=== PATIENT | male | born 1940 | race Caucasian/White ===

== ENCOUNTER 2024-11-13 23:46 | Observation (INO) | payer OTHER, SELFPAY ==
[2024-11-13] VITALS (8 sets, daily range): BP systolic 138–191; BP diastolic 88–122; BMI 27.4
[2024-11-13 20:19] LABS: % Basophils 0.5 % (0-2); % Eosinophils 2.3 % (0-6); % Immature Granulocytes 0.3 % (0-0.5); % Monocytes 5.4 % (1.7-9.3); % Neutrophils 77.5 % (42.2-75.2); Absolute Basophils 0.1 10^3/uL (0-0.2); Absolute Eosinophils 0.2 10^3/uL (0-0.7); Absolute Lymphocytes 1.5 10^3/uL (1.2-3.4); Absolute Monocytes 0.6 10^3/uL (0.1-0.6); Hematocrit 46.1 % (39.0-52.0); Mean Corp Hgb Conc. 34.7 g/dL (33.0-37.0); Mean Corpuscular Hgb 32.1 pg (27.0-31.0); Mean Corpuscular Volume 92.4 fL (80.0-94.0); Nucleated Red Blood Cells % 0 % (-); Platelet Count 133 10^3/uL (130-400); Red Blood Cell Count 4.99 10^6/uL (4.70-6.10); Red Cell Dist. Width 12.2 % (11.5-14.5); White Blood Cell Count 10.3 10^3/uL (4.8-10.8)
[2024-11-13] MEDS: VALIUM INJECTION 2 MG IV (20:25)
[2024-11-13 20:46] LABS: Blood Urea Nitrogen 20 mg/dl (9-20); Calcium 8.7 mg/dl (8.4-10.2); Carbon Dioxide 27 mmol/L (22-30); Chloride 103 mmol/L (98-107); Estimated Creatinine Clearance 68 ml/min; Glucose 126 mg/dl (70-99); Sodium 137 mmol/L (135-145); eGFR > 60.00
--- NOTE | 2024-11-13 22:42 | ED.GENMED ---
History of Present Illness
General
Chief Complaint: Dizziness
Time Seen by Provider: 11/13/24 19:53
History of Present Illness
History of Present Illness:
84-year-old male presents to the emergency department for evaluation of abrupt onset of dizziness with difficulty ambulating beginning at approximately 5 PM after waking up from a nap. [place] well throughout the day. Denies specific sense of room
spinning but feels very unsteady when upright feels though he may fall. No headaches, vision changes, chest pain, or shortness of breath. No recent viral URIs
Review of Systems
Review of Systems
Allergies reviewed?: Yes
All Other Systems: ROS reviewed and negative except as documented in HPI and ROS
Phy Exam
Physical Exam
Physical Exam:
GEN: Well appearing, NAD, WDWN
HEENT: Oral mucosa moist, no scleral icterus, no nasal congestion
Cardiac: Regular rate
Lung: No respiratory distress, no tachypnea
MSK: No gross deformity or injuries
Skin: Good color, no pallor or jaundice, no rashes
Neuro: AO x3; CN II-XII grossly intact. BUE strength 5/5 in all scruggs, sensation intact and symmetric. BLE strength 5/5 in all scruggs, sensation intact and symmetric. Right beating horizontal nystagmus at rest, worsens when upright, negative test
of skew
Psych: Calm, cooperative
Course
Orders/Labs/Results
Orders:
Orders
11/13/24 19:52
EKG [Electrocardiogram (*1)] Urgent
Reason for Study: Vertigo / Dizzy
11/13/24 19:53
EKG- Treatment ONCE
11/13/24 20:04
Basic Metabolic Panel Urgent
Complete Blood Count/With Diff Urgent
11/13/24 20:07
CT Head W/o Iv Contrast Urgent
Comment:
Reason For Exam: vertigo
diazePAM [Valium Injection] 2 mg IV NOW STA
11/13/24 23:20
Admit/Transfer Patient As Directed
Co-Sign Provider:
Level of Care: Observation services
Assign to:: Telemetry
Physician / Group: joe
Diagnosis: vrtigo
Reason for Telemetry: Other
Other Reason for Telemetry: vertigo, arrhythmia
Date to Stop Telemetry: 11/15/24
Time to Stop Telemetry: 11:00
PRN Pain Medication Management As Directed
May give lesser potent ordered pain med per pt: Yes
preference::
Protocol:: Medication orders for pain may be administered in a
manner that supports deferring to patient preference
when the pt is:
- Requesting an ordered lesser potent pain medication.
Least to most potent pain medications are defined
as: acetaminophen < NSAID < tramadol < opioids
(morphine, oxycodone, hydromorphone).
- Requesting a lesser dose of the same medication IF
ORDERED.
- Requesting a less intrusive route of administration
if both routes are prescribed by the provider (PO <
IV).
11/13/24 23:21
Code Status As Directed
Resuscitation Status: Full Code
11/13/24 23:29
Lisinopril [Zestril] 10 mg PO NOW STA
Metoprolol Xl [Toprol Xl] 12.5 mg PO NOW STA
11/15/24 11:00
DC Protocol for Telemetry ONCE
Abnormal Lab Results
11/13/24
20:04
MCH 32.1 H pg
(27.0-31.0)
MPV 11.0 H fL
(7.4-10.4)
Absolute Neuts (auto) 8.0 H 10^3/uL
(1.4-6.5)
Neutrophils % 77.5 H %
(42.2-75.2)
Lymphocytes % 14.0 L %
(20.5-51.1)
Glucose 126 H mg/dl
(70-99)
11/13/24 20:04
11/13/24 20:04
Vital Signs
Initial and Last Documented VS:
Initial Vital Signs
Temp Pulse Resp BP Pulse Ox
98.9 F 83 17 191/106 98
11/13/24 19:54 11/13/24 19:54 11/13/24 19:54 11/13/24 19:54 11/13/24 19:54
Last Documented Vital Signs
Temp Pulse Resp BP Pulse Ox
98.5 F 82 22 182/103 97
11/13/24 20:00 11/13/24 23:00 11/13/24 23:00 11/13/24 23:00 11/13/24 22:45
MDM/Problems Addressed
MDM/Problems Addressed:
Patient has persistent symptoms despite IV diazepam. Given his advanced age he has a significant fall risk and as such we will admit for further evaluation and management. Do not suspect central etiology given the horizontal nystagmus and
improvement with IV diazepam. He has no other neurologic deficits including no visual changes and no limb ataxia. Given episode of vertigo in the absence of any other neurologic deficits there is no indication for thrombolytics at this time
*Critical Care Note
Total Time (30-74mins, 75-104mins- exclusive of procedures): Not Applicable
ED Attending Note
-
Portions of this chart may have been created with voice recognition software.� Occasional wrong word or��sound alike� substitutions may have occurred due to the inherent limitations of voice recognition software.
Discharge Plan
Departure
Patient Disposition: Admit
Date of Disposition: 11/13/24
Time of Disposition: 22:49
Admit to: Med/Surg
Presentation/result/management discussed w/ accepting MD/DO: Hospitalist
Discharge Problem:
Vertigo
Interventions
Interventions:
*Risk Screen - Suicide Last Done: 11/13/24 19:54
*General Assessment Last Done: 11/13/24 19:54
*Neglect/Abuse Screening Last Done: 11/13/24 19:54
ED- Fall Risk Assessment Last Done: 11/13/24 19:54
*ED COVID-19 Vaccine History Last Done: 11/13/24 19:54
ED- Neurological Assessment Last Done: 11/13/24 19:54
ED Swallowing Screen Last Done: 11/13/24 19:54
--- NOTE | 2024-11-13 22:56 | HPS.HSE ---
Addendum entered and electronically signed by Yamil Leo DO 11/13/24 23:47:
Patient seen and examined independently. Agree with findings and plan as set forth by ROGER Dawson.
Patient is an 84y M with PMH significant for A-Fib, HTN and ASCVD who presents to ED complaining of dizziness / unsteady gait. Patient states that he felt well until he woke from a nap this evening around 5 PM. he woke with symptoms of
dizziness and ataxia. He was en route to the ED and had a single episode of emesis in the car. Patient reports episode of unsteady gait and subsequent fall (no injury) about 2 weeks ago while walking his dog. No other baseline ambulatory issues /
balance issues / etc.
His BP was significantly elevated on arrival here in the ED. It briefly improved after Valium but is again elevated.
Patient states that he does not feel dizzy at this time.
Ass:
Dizziness
ASCVD
Benign Hypertension
Permanent Atrial Fibrillation
Hemochromatosis
Plan:
Observe overnight for further evaluation and treatment.
Monitor for any new / recurrent symptoms.
Resume usual BP medication (has not had evening meds yet) and adjust as needed.
IV hydralazine for very high BP.
PT / OT evaluations in the AM.
MRI in the AM given multiple risk factors for stroke.
Original Note:
Family Physician
-
Family Physician: Deepika Bee MD
Chief Complaint
-
dizzy
unstready
History of Present Illness
84-year-old male with PMH for CAD s/p cardiac stents, permanent atrial fib, HTN, HLD presents to the emergency department for evaluation of abrupt onset of dizziness with difficulty ambulating beginning at approximately 5 PM after waking up from a
nap. he felt very unsteady on his feet. he vomited once in the car. denied abdominal pain or diarrhea. denied fever, chills, congestion, cough. denied CLEMONS. denied dysuria or hematuria. patient had a fall two week while he was walking his dog. he was
not able to control his balance that and he fell on his left side to the grass. Denies specific sense of room spinning.
admitting for further management. patient received diazepam in ER, feels much better since then.
Medical History
Past Medical History
Past Medical History: Reports Other
Additional Past Medical History:
vitamin D deficiency
CAD
HTN
GERD
Past Surgical History: Reports Other
Additional Past Surgical History:
cardiac stent
Social History
Tobacco: Former Smoker
Alcohol: Occasional
Drug: None
Personal:
Living: With Family
Family History
Family History: Not pertinent
Allergies / Home Medications
Allergies reflects when Allergies were last updated in [email or web address].
Home Medications with original date entered in [email or web address]
Allergy/Medication List:
Allergies
Allergy/AdvReac Type Severity Reaction Status Date / Time
No Known Allergies Allergy Unverified 11/13/24 19:53
Home Medications
apixaban 5 mg tablet (Eliquis) 5 mg PO BID 11/13/24
calcium carbonate (Tums) 100 mg PO DAILYPRN PRN heartburn 11/13/24
cholecalciferol (vitamin D3) 25 mcg (1,000 unit) tablet (Vitamin D3) 25 mcg PO HS 11/13/24
lisinopril 10 mg tablet 10 mg PO HS 11/13/24
metoprolol tartrate 25 mg tablet 12.5 mg PO BID 11/13/24
simvastatin 10 mg tablet 10 mg PO HS 11/13/24
Review of Systems
-
Constitutional: Reports No Symptoms
EENT: Reports No Symptoms
Respiratory: Reports No Symptoms
Cardiac: Reports No Symptoms
Abdomen/GI: Reports No Symptoms
: Reports No Symptoms
Musculoskeletal: Reports No Symptoms
Skin: Reports No Symptoms
Neurological: Reports Dizzy and Other (off balance)
Endocrine: Reports No Symptoms
Hematologic/Lymphatic: Reports No Symptoms
Psych: Reports No Symptoms
Physical Exam
Vital Signs
Vital Signs
Temp Pulse Resp BP Pulse Ox
98.5 F 85 14 170/88 94
11/13/24 20:00 11/13/24 21:56 11/13/24 21:56 11/13/24 21:55 11/13/24 21:56
Physical Exam
General: Well Developed, Well Nourished and No Apparent Distress
HEENT: NormoCephalic, Moist mucous membranes and Atraumatic
Respiratory: Clear
Cardiac: S1/S2 and Regular Rhythm; No Murmur or Rub
GI: Soft, Non Tender, Non Distended and Normal Bowel Sounds; No Organomegaly
Rectal: Deferred by Provider
Musculoskeletal: No Clubbing, No Cyanosis and No Edema
Skin: No Rash
Neuro: AO x 3 and Nonfocal/grossly intact
Psych: Calm
Laboratory Results
-
11/13/24 20:04
11/13/24 20:04
Laboratory Results
Total Bilirubin Cancelled 11/13/24 20:04
AST Cancelled 11/13/24 20:04
ALT Cancelled 11/13/24 20:04
Alkaline Phosphatase Cancelled 11/13/24 20:04
Data Reviewed
-
CT Scan: Report Reviewed by me
Lab Data: Labs Reviewed by me
Impression/Plan
-
#acute vertigo
-improved with iv Valium
-head CT with There are no acute intracranial abnormalities.There is moderate diffuse cortical atrophy with moderate nonspecific white matter changes as described above.
-obtain MRI of head
-obtain orthostatics
-ctm
#hxt of CAD
#hxt of cardiac stents
#hxt of permanent atrial fib
-eliquis and metoprolol continued
#essential htn
-patient hypertensive in ER
-continue lisinopril with hold parameter
-gave a dose of metoprolol and lisinopril in ER.
#hxt of hemochromatosis
-gets phlebotomy twice a year
-follow Dr. Weston as outpatient.
#HLD
-statin continued
#DVT prophylaxis
-eliquis
#CODE status
-full code
[2024-11-14] VITALS (21 sets, daily range): BP systolic 137–200; BP diastolic 76–144; PULSE 59–73; O2SAT 97; BMI 25.5
[2024-11-14] MEDS: TOPROL XL 12.5 MG PO (01:41)
[2024-11-14] MEDS: ZESTRIL 10 MG PO ×2 (01:41→17:53)
--- NOTE | 2024-11-14 04:49 | EDRN ---
Ativan 0.5mg IV and NSS 0.25ml IV that is ordered is currently being held, as it is meant to be given 'promotions representative to MRI' and pt. will not be getting said MRI until later this morning. Pt. is aware medication to be given prior to MRI, pt. agreeable
with this plan.
[2024-11-14] MEDS: ELIQUIS 5 MG PO ×2 (08:40→23:08)
[2024-11-14] MEDS: LOPRESSOR 12.5 MG PO ×2 (08:40→23:08)
[2024-11-14] MEDS: APRESOLINE 10 MG IV (10:51)
--- NOTE | 2024-11-14 12:00 | PTCARENOTE ---
Assumed care of patient [id number].
Patient awaiting MRI after complaint of dizziness/unsteady gait. Patient is pleasant, cooperative and AAOX4. No Neuro Deficits at this time, NIH 0. A-Fib on Monitor with PVC's. Hypertensive to SBP > 200 after working with PT, administered IV
Hydralazine with great effect (BP 137/76).
--- NOTE | 2024-11-14 13:35 | W.PN.HOSP.TC ---
Today's Communication/Plan
-
PT/OT
Increase lisinopril
brain MRI
Assessment / Plan
Assessment / Plan
Gen-AAOx3, NAD
HEENT-NC, AT, anicteric, clear oral mm
Neck-supple
CV-reg, no M, +S1/S2
Lungs-clear B/L
Abd-soft, NT, ND
Ext-no edema
Musculoskeletal-no cyanosis, clubbing
Skin-warm and dry
Neuro-grossly non-focal
Psych-calm, cooperative
Gait ataxia -patient denies dizziness, lightheadedness, vertigo. Brain MRI pending, rule out stroke. Left lateral gaze horizontal nystagmus noted on exam. Questionable positive left Babinski on exam.
PT/OT.
CAD -stable.
Essential hypertension with hypertensive urgency -lisinopril and metoprolol resumed, will increase lisinopril dose to 20 mg daily.
Permanent atrial fibrillation -Eliquis.
Hyperlipidemia -simvastatin.
Hemochromatosis
GERD
Full code
Anticipated Discharge: Within 24 hours
Subjective/Interval History
-
Date of Service: November 14, 2024
Patient seen and examined. Still with ataxia. Denies vertigo.
Objective Data
-
Vital Signs:
Vital Signs
Temp Pulse Resp BP Pulse Ox
97.4 F 69 19 162/144 93
11/14/24 08:44 11/14/24 13:15 11/14/24 13:15 11/14/24 13:00 11/14/24 13:15
Review of Systems
-
History Source: Patient
All other systems: Reviewed and negative
[2024-11-14] MEDS: NSS (PRESERVATIVE FREE) 0.25 ML IV (15:28)
[2024-11-14] MEDS: ATIVAN 0.5 MG IV (15:28)
--- NOTE | 2024-11-14 17:40 | PTCARENOTE ---
pt presents from ED via stretcher. pt is AAO*3, room air. denies any pain or dizziness. Family at the bedside updated by Dr. Vivas. pt is oriented to the room. call parish within the reach. plan of care ongoing.
[2024-11-14] MEDS: ELIQUIS PO (21:21)
[2024-11-14] MEDS: LIPITOR PO (21:21)
[2024-11-14] MEDS: LOPRESSOR PO (21:21)
--- NOTE | 2024-11-14 21:24 | PTCARENOTE ---
Patient AAO x1 only to self. Patient refusing nightime medications. 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 Will continue to monitor.
[2024-11-14] MEDS: LIPITOR 10 MG PO (23:08)
--- NOTE | 2024-11-14 23:20 | PTCARENOTE ---
Update: patient more calm and cooperative. Given all nighttime medications. POLYSOMNOGRAPHY TECH updated.
[2024-11-15 00:48] VITALS: BP 180/92
[2024-11-15] MEDS: APRESOLINE 5 MG IV (00:58)
[2024-11-15 03:53] VITALS: BP 160/88
--- NOTE | 2024-11-15 08:24 | CON.NEURO ---
Consultation
Order
Date of Consultation: 11/15/24
Requesting Provider: Maurice Vivas DO
Reason for Consult: Ataxia, encephalopathy
Neurology Consultation Note.
HPI: This is an 84-year-old man who presented to [facility] on 11/13/2024 with imbalance. Neurology consult was requested for an evaluation and management of ambulatory dysfunction and encephalopathy.
Based on EMR Mr. Villatoro developed an acute imbalance, dizziness with associated emesis prompting the ER visit.
According to patient's daughter Mr. Villatoro has had progressive cognitive decline over the last year. She developed fluctuating confusion and agitation on 11/13 evening.
At baseline the patient ambulates with no assistive device does have intermittent shuffling gait takes his medications independently and drives.
Based on EMR patient was diagnosed with cognitive impairment based on MoCA score of 20/30 in September 2024.
ER VS: 191/106, 83, afebrile
EKG:A Fib, QTc Int : 510 ms
PDMP:none
Labs(11/13/2024) normal WBCs, sodium, calcium, glucose�126,
CT head wo contrast
Brain MRI 3 small chronic ischemic infarcts in the left cerebellar hemisphere, moderate diffuse cerebral and cerebellar volume loss and leukoaraiosis
MAR: Diazepam 2 mg administered on 11/13/24 at 20:25, Lorazepam 0.5 mg given on 11/14/24 at 15:28
PMH: hereditary hemochromatosis, CAD, A-Fib, HTN, DLP, IGT, vitamin D deficiency
PSH:PTCI
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
FH: mother, grandfather�cognitive deficits
All:NKDA
ROS: Unable due to noncooperation
General: Intermittently agitated
Mental Status: Awake, alert, oriented to name, person. No aphasia or hemineglect. Fluent.
Cranial Nerves: Orthophoric primary gaze. Horizontal extraocular movements intact. No facial weakness, hearing is preserved. No dysarthria.
Motor: Moves all limbs antigravity symmetrically purposefully.
Coordination: No tremors or myoclonic movements
Gait: Wide stance
Assessment and Plan:
I. Multifactorial encephalopathy (vascular(infarcts, hypertension), neurodegenerative, toxic(bz)) with superimposed delirium. Benzodiazepines have a limited role in the treatment of delirium; they are primarily indicated in cases of sedative drug
and alcohol withdrawal or when antipsychotic drugs are contraindicated.
II. Hypertensive emergency
III. Chronic cerebellar infarcts.
IV. Hereditary hemochromatosis. Hemochromatosis is known to increase the risk of dementia, especially in men
V. Imbalance�likely multifactorial (vascular, chronic cerebellar infarcts) Limited assessment due to lack of sensory and gait exam.
-Fall and delirium precautions
-Start thiamine IV
-Continue Eliquis for stroke prevention
-Please check vitamin B12, TFTs, UA
-Psychiatry consult
-No driving
-PT
-The case was discussed with patient's daughter and spouse
-Will follow
I personally reviewed all radiology and labs along with past medical records pertinent to current medical problems. Total time spent in patient care is 67 minutes.
Thank you for allowing us to participate in the care of this patient. We will continue to follow. Please do not hesitate to contact us with any questions or concerns.
Subjective/Objective
Subjective Data
Date of Service: November 15, 2024
Objective Data
Vital Signs
Temp Pulse Resp BP Pulse Ox
36.5 C 86 22 160/88 97
11/15/24 03:39 11/15/24 03:53 11/15/24 03:39 11/15/24 03:53 11/15/24 03:39
Lab Results
11/13/24 20:04
11/13/24 20:04
Sodium 137 mmol/L (135-145) 11/13/24 20:04
Potassium mmol/L (3.5-5.1) 11/13/24 20:04
BUN 20 mg/dl (9-20) 11/13/24 20:04
Glucose 126 mg/dl (70-99) H 11/13/24 20:04
Calcium 8.7 mg/dl (8.4-10.2) 11/13/24 20:04
Patient Allergies
No Known Allergies Allergy (Unverified 11/13/24 19:53)
Medications
-
Active Medications
Generic Name Dose Route Start Last Admin
Trade Name Freq PRN Reason Stop Dose Admin
Acetaminophen 650 mg 11/14/24 01:44
Acetaminophen 325 Mg Tablet PO 12/12/24 01:43
Q4HPRN PRN
mild pain/CLEMONS/temp> 100.4F
Apixaban 5 mg 11/14/24 08:00 11/14/24 23:08
Apixaban (Eliquis) 5 Mg Tablet PO 12/12/24 07:59 5 mg
BID SHARLA Administration
Atorvastatin Calcium 10 mg 11/14/24 22:00 11/14/24 23:08
Atorvastatin (Lipitor) 10 Mg Tablet PO 12/12/24 21:59 10 mg
HS SHARLA Administration
Bisacodyl 10 mg 11/14/24 01:44
Bisacodyl 10 Mg Rectal Suppository RECTAL 12/12/24 01:43
[id number] PRN
constipation
Lisinopril 20 mg 11/15/24 08:00
Lisinopril 20 Mg Tablet PO 12/13/24 07:59
DAILY SHARLA
Metoprolol Tartrate 12.5 mg 11/14/24 08:00 11/14/24 23:08
Metoprolol 25 Mg Regular Release Tablet PO 12/12/24 07:59 12.5 mg
BID SHARLA Administration
Polyethylene Glycol 17 grams 11/14/24 01:44
Polyethylene Glycol Powder 17 Grams Packet PO 12/12/24 01:43
DAILYPRN PRN
constipation
Senna/Docusate Sodium 1 tablet 11/14/24 01:44
Docusate W/Senna (Marcella-Colace) Tablet PO 12/12/24 01:43
BIDPRN PRN
constipation
Sodium Chloride 0 flush 11/14/24 06:00
Sodium Chloride 0.9% (Flush) Syringe IV 12/12/24 05:59
PER PROTOCOL SHARLA
Home Medications
�Medication �Instructions �Recorded
apixaban 5 mg tablet (Eliquis) 5 mg PO BID 11/13/24
calcium carbonate (Tums) 100 mg PO DAILYPRN PRN heartburn 11/13/24
cholecalciferol (vitamin D3) 25 25 mcg PO HS 11/13/24
mcg (1,000 unit) tablet (Vitamin
D3)
lisinopril 10 mg tablet 10 mg PO HS 11/13/24
metoprolol tartrate 25 mg tablet 12.5 mg PO BID 11/13/24
simvastatin 10 mg tablet 10 mg PO HS 11/13/24
Vital Signs and Labs
-
Vital Signs and Labs:
Vital Signs
Temp Pulse Resp BP Pulse Ox
36.5 C 83 22 138/89 97
11/15/24 03:39 11/15/24 09:25 11/15/24 03:39 11/15/24 09:25 11/15/24 03:39
Lab Results
11/13/24 20:04
11/13/24 20:04
Sodium 137 mmol/L (135-145) 11/13/24 20:04
Potassium mmol/L (3.5-5.1) 11/13/24 20:04
BUN 20 mg/dl (9-20) 11/13/24 20:04
Glucose 126 mg/dl (70-99) H 11/13/24 20:04
Calcium 8.7 mg/dl (8.4-10.2) 11/13/24 20:04
Medications
-
Medications:
Generic Name Dose Route Start Last Admin
Trade Name Freq PRN Reason Stop Dose Admin
Acetaminophen 650 mg 11/14/24 01:44
Acetaminophen 325 Mg Tablet PO 12/12/24 01:43
Q4HPRN PRN
mild pain/CLEMONS/temp> 100.4F
Apixaban 5 mg 11/14/24 08:00 11/15/24 09:25
Apixaban (Eliquis) 5 Mg Tablet PO 12/12/24 07:59 5 mg
BID SHARLA Administration
Atorvastatin Calcium 10 mg 11/14/24 22:00 11/14/24 23:08
Atorvastatin (Lipitor) 10 Mg Tablet PO 12/12/24 21:59 10 mg
HS SHARLA Administration
Bisacodyl 10 mg 11/14/24 01:44
Bisacodyl 10 Mg Rectal Suppository RECTAL 12/12/24 01:43
[id number] PRN
constipation
Lisinopril 20 mg 11/15/24 08:00 11/15/24 09:25
Lisinopril 20 Mg Tablet PO 12/13/24 07:59 20 mg
DAILY SHARLA Administration
Metoprolol Tartrate 12.5 mg 11/14/24 08:00 11/15/24 09:25
Metoprolol 25 Mg Regular Release Tablet PO 12/12/24 07:59 12.5 mg
BID SHARLA Administration
Polyethylene Glycol 17 grams 11/14/24 01:44
Polyethylene Glycol Powder 17 Grams Packet PO 12/12/24 01:43
DAILYPRN PRN
constipation
Senna/Docusate Sodium 1 tablet 11/14/24 01:44
Docusate W/Senna (Marcella-Colace) Tablet PO 12/12/24 01:43
BIDPRN PRN
constipation
Sodium Chloride 0 flush 11/14/24 06:00
Sodium Chloride 0.9% (Flush) Syringe IV 12/12/24 05:59
PER PROTOCOL SHARLA
Home Medications
-
Home Medications
apixaban 5 mg tablet (Eliquis) 5 mg PO BID 11/13/24
calcium carbonate (Tums) 100 mg PO DAILYPRN PRN heartburn 11/13/24
cholecalciferol (vitamin D3) 25 mcg (1,000 unit) tablet (Vitamin D3) 25 mcg PO HS 11/13/24
metoprolol tartrate 25 mg tablet 12.5 mg PO BID 11/13/24
simvastatin 10 mg tablet 10 mg PO HS 11/13/24
lisinopril 20 mg tablet 20 mg PO DAILY #30 tabs 11/15/24
--- NOTE | 2024-11-15 09:12 | W.PN.HOSP.TC ---
Today's Communication/Plan
-
Discharge
Assessment / Plan
Assessment / Plan
Gen-AAOx3, NAD
HEENT-NC, AT, anicteric, clear oral mm
Neck-supple
CV-reg, no M, +S1/S2
Lungs-clear B/L
Abd-soft, NT, ND
Ext-no edema
Musculoskeletal-no cyanosis, clubbing
Skin-warm and dry
Neuro-grossly non-focal
Psych-calm, cooperative
Hospital-acquired delirium -patient now calm. Agitation resolved with family at the bedside. Recommend discharge. Would not sedate him. Delirium should improve upon returning home. Discussed in detail with family.
Gait ataxia -patient denies dizziness, lightheadedness, vertigo. Brain MRI negative for acute stroke. Does show 3 small chronic ischemic infarcts in the left cerebellar hemisphere. Moderate white matter leukoaraiosis in the frontal and parietal
lobes. Moderate diffuse cerebral and cerebellar volume loss. Rule out underlying Parkinson's versus other movement disorders. Will need outpatient neurology workup and follow-up. Discussed in detail with family. Rule out underlying cognitive
impairment.
Neurology consulted but unable to come up with a clear diagnosis due to his delirium.
CAD -stable.
Essential hypertension with hypertensive urgency -lisinopril and metoprolol resumed, will increase lisinopril dose to 20 mg daily. Discharge on higher dose of lisinopril with outpatient follow-up with PCP. Discussed with family.
Permanent atrial fibrillation -Eliquis.
Hyperlipidemia -simvastatin.
Hemochromatosis
GERD
Full code
Dispo -discharge home today with family. Outpatient PCP and neurology follow-up. Outpatient PT. Prescription for rolling walker provided. Discussed in detail with and daughter.
35 minutes spent in discharge process.
Anticipated Discharge: Today
Subjective/Interval History
-
Date of Service: November 15, 2024
Patient seen and examined. Nursing reports he was more confused today. Family at the bedside. Patient without complaints.
Objective Data
-
Vital Signs:
Vital Signs
Temp Pulse Resp BP Pulse Ox
97.7 F 86 22 160/88 97
11/15/24 03:39 11/15/24 03:53 11/15/24 03:39 11/15/24 03:53 11/15/24 03:39
I&O
11/14/24 11/15/24 11/16/24
06:59 06:59 06:59
Output Total 970 / 970
Balance -970 / -970
Review of Systems
-
Unable to obtain full review of systems at this time due to: Acuity
History Source: Patient
All other systems: Reviewed and negative
--- NOTE | 2024-11-15 09:16 | W.DS.TRANS ---
DC Summary - [employer] Labou[employer]
-
Discharge Instructions:
Sleep Apnea Risk Intermediate
Discharge Diagnosis/Procedures Gait dysfunction
Diet Low Cholesterol,Low Fat
Activity As tolerated
Driving Restrictions No driving
Bathing Restrictions None
Other Services PT
Instructions:
Stand-Alone Forms:
Changes to Home Medications: Yes
Discharge Medications:
DC Medications w/original date entered in [facility]
apixaban 5 mg tablet (Eliquis) 5 mg PO BID 11/13/24
calcium carbonate (Tums) 100 mg PO DAILYPRN PRN heartburn 11/13/24
cholecalciferol (vitamin D3) 25 mcg (1,000 unit) tablet (Vitamin D3) 25 mcg PO HS 11/13/24
metoprolol tartrate 25 mg tablet 12.5 mg PO BID 11/13/24
simvastatin 10 mg tablet 10 mg PO HS 11/13/24
lisinopril 20 mg tablet 20 mg PO DAILY #30 tabs 11/15/24
Home Medication Changes
Lisinopril dose increased to 20 mg daily.
Pending Results: No
[2024-11-15 09:25] VITALS: BP 138/89
[2024-11-15] MEDS: LOPRESSOR 12.5 MG PO (09:25)
[2024-11-15] MEDS: ZESTRIL 20 MG PO (09:25)
[2024-11-15] MEDS: ELIQUIS 5 MG PO (09:25)
--- NOTE | 2024-11-15 10:02 | CM ---
Initial assessment completed
MENON form explained and signed@ 0950
Pharmacy verified: [facility] @ [address] [place] [address]
Lives with in a multilevel home; was independent with ambulation, stairs, and ADLs; railings present on the steps; Drives; Retired
No SNF or Home Health utilization history
Daughter at bedside and will transport home
Plan: discharge today to home with script for outpatient PT and a rolling walker
[2024-11-15 10:06] VITALS: BP 138/89; PULSE 83; O2SAT 96
[2024-11-15 11:30] VITALS: BP 150/95
== END 2024-11-15 12:10 | disposition home or self-care (01) ==
LOC: 4 EAST ACU 23:46
PROVIDERS: Emergency Medicine; ADMITTING PHYSICIAN Hospitalist; ATTENDING PHYSICIAN Hospitalist; CONSULT PHYSICIAN Psychiatry & Neurology Neurology; EMERGENCY PHYSICIAN Student in an Organized Health Care Education/Training Program; FAMILY PHYSICIAN Student in an Organized Health Care Education/Training Program
DX: I16.0 Hypertensive urgency (principal); R42 Dizziness and giddiness; R26.2 Difficulty in walking, not elsewhere classified; G93.49 Other encephalopathy; H55.09 Other forms of nystagmus; R26.0 Ataxic gait; I48.21 Permanent atrial fibrillation; I10 Essential (primary) hypertension; I25.10 Atherosclerotic heart disease of native coronary artery without angina pectoris; F05 Delirium due to known physiological condition; E78.5 Hyperlipidemia, unspecified; R45.1 Restlessness and agitation; I49.3 Ventricular premature depolarization; I67.81 Acute cerebrovascular insufficiency; G31.9 Degenerative disease of nervous system, unspecified; I67.82 Cerebral ischemia; E83.110 Hereditary hemochromatosis; K21.9 Gastro-esophageal reflux disease without esophagitis; Z87.891 Personal history of nicotine dependence; Z79.01 Long term (current) use of anticoagulants; Z95.5 Presence of coronary angioplasty implant and graft; Z86.73 Personal history of transient ischemic attack (TIA), and cerebral infarction without residual deficits
CPT/HCPCS: 70450; 70551; 80048; 85025; 93005; 96374; 97116; 97166; 97530; 99285; G0378

== ENCOUNTER → 2024-12-08 09:47 | Outpatient (REF) | payer OTHER, SELFPAY | LOC: RAD 09:47 | PROVIDERS: ATTENDING PHYSICIAN Nurse Practitioner; FAMILY PHYSICIAN Student in an Organized Health Care Education/Training Program | DX: I10 Essential (primary) hypertension (principal); E78.2 Mixed hyperlipidemia; R09.89 Other specified symptoms and signs involving the circulatory and respiratory systems | CPT/HCPCS: 93225; 93226; 93880 ==

== ENCOUNTER → 2024-12-26 13:00 | Outpatient (REF) | payer OTHER, SELFPAY | LOC: RCS 13:00 | PROVIDERS: ATTENDING PHYSICIAN Internal Medicine Cardiovascular Disease; FAMILY PHYSICIAN Student in an Organized Health Care Education/Training Program | DX: I48.11 Longstanding persistent atrial fibrillation (principal) | CPT/HCPCS: 93306 ==

== ENCOUNTER → 2025-02-06 10:40 | Outpatient (REF) | payer OTHER, SELFPAY ==
[2025-02-06 10:55] LABS: % Basophils 0.4 % (0-2); % Eosinophils 1.5 % (0-6); % Immature Granulocytes 0.1 % (0-0.5); % Lymphocytes 18.1 % (20.5-51.1); % Monocytes 9.8 % (1.7-9.3); % Neutrophils 70.1 % (42.2-75.2); Absolute Eosinophils 0.1 10^3/uL (0-0.7); Absolute Lymphocytes 1.5 10^3/uL (1.2-3.4); Absolute Monocytes 0.8 10^3/uL (0.1-0.6); Absolute Neutrophils 5.8 10^3/uL (1.4-6.5); Hemoglobin 16.9 g/dL (13.0-18.0); Mean Corp Hgb Conc. 35.2 g/dL (33.0-37.0); Mean Corpuscular Hgb 32.3 pg (27.0-31.0); Mean Corpuscular Volume 91.8 fL (80.0-94.0); Mean Platelet Volume 10.3 fL (7.4-10.4); Platelet Count 146 10^3/uL (130-400); Red Blood Cell Count 5.23 10^6/uL (4.70-6.10); Red Cell Dist. Width 12.4 % (11.5-14.5); White Blood Cell Count 8.3 10^3/uL (4.8-10.8)
[2025-02-06 12:15] LABS: Iron 154 ug/dl (49-181)
[2025-02-06 12:25] LABS: Percent Saturation 62 % (20-50); Total Iron Binding Capacity 247 ug/dl (261-462)
[2025-02-06 12:38] LABS: Ferritin 35.5 ng/ml (17.9-464.0)
== END ==
LOC: OIDL 10:40
PROVIDERS: ATTENDING PHYSICIAN Internal Medicine Hematology & Oncology
DX: E83.110 Hereditary hemochromatosis (principal)
CPT/HCPCS: 36415; 82728; 83540; 83550; 85025

== ENCOUNTER 2025-02-11 08:01 | Day surgery (SDC) | payer OTHER, SELFPAY ==
[2025-02-11] VITALS (16 sets, daily range): BP systolic 104–173; BP diastolic 68–89; BMI 27.3
[2025-02-11 08:55] LABS: Glucose - Point of Care 113 mg/dl (70-99)
--- NOTE | 2025-02-11 13:15 | ITS.CL.PACE ---
Assistant Attorney General - Pacemaker Implant
Pacemaker Implant
Procedure Report:
PACEMAKER IMPLANT REPORT
February 11, 2025
Primary Care Provider: Dr. Deepika Bee
Primary brakeshoe repairer: Dr Maddie Reilly
Procedure:
Implantation of Single-chamber permanent pacemaker utilizing the left bundle branch for conduction system pacing
Indication/Diagnosis:
Non-reversible symptomatic bradycardia due to sinus node dysfunction
After informed consent was obtained, 'time out' was called and confirmed, the patient was prepped and draped in a sterile fashion. Lidocaine with epi was used for local anesthesia. Central venous access was obtained via subclavian venipuncture. An
incision was made along the left chest and a pre-pectoral pocket was formed. Using a Seldinger technique and peel-away sheaths, the pacing leads were placed under fluoroscopic guidance.
Fluoroscopy was used to determine likely anatomic site for left bundle branch pacing. The Intermoleculartronic C315 sheath was used to deliver the Medtronic 3830 Selectsecure pacing lead with the helix exposed just exposed from the sheath tip during continuous
monitoring when pacemapping the septum during gentle clockwise rotation to obtain a paced QRS morphology of a W pattern in lead V1. Once the suspected optimal site was identified, lead deployment was performed with several rapid rotations as paced
QRS morphology was intermittently monitored until a paced QRS complex in lead V1 demonstrated development of an R wave [ ] (qR or rSR).
Unipolar pacing impedance dropped by approximately 100 ohms suggesting it had reached the left ventricular subendocardial.
Stable VEgm injury current is present throughout final lead position including at end of case, suggesting there was no perforation through the septum into the LV cavity.
Unipolar pacing impedance is 1100 Ohms
Unipolar pacing threshold is stable at 1 V @ 0.4 ms.
Final conduction system paced QRS complex duration is 83 ms
LVAT is 67 ms and peak V5 -> peak V1 timing is 40 ms
There is QRS transition to LVSP / selective LBBP during threshold testing
Once testing (see below) showed adequate and stable function, the leads were secured using the suture sleeves. The pocket was liberally irrigated with antibiotic solution. The leads were connected to the generator header and the leads and
generator were placed within the pocket. Fluoroscopy confirmed stable lead position. The pocket was closed in the typical fashion.
IMPLANTS:
Medtronic [id number], SN: [id number], Left Pectoral
Left Bundle: Medtronic 3830 , SN:[id number], Interventricular septum at LBB
DEVICE TESTING:
Sensing: RV 7.1 mV
Capture: RV 0.5 V@0.4ms
Ohms: RV 1083
FINAL PROGRAMMING
Diaz Pacing: VVIR 60-130 ppm
COMPLICATIONS:
None
CONCLUSIONS:
1: Successful implant of dual chamber permanent pacemaker utilizing Left Bundle Branch conduction system capture for ventricular resynchronization pacing.
RECOMMENDATIONS:
1. Post-op care (tele, CXR, IV abx)
2. In-Office wound check in 5-7 days
Copy to:
Dr. Deepika Bee
Dr Maddie Reilly
--- NOTE | 2025-02-11 14:50 | W.PN.UPDATE ---
Update Note
Progress Note Update
85 yo WM s/p DC PPM (same day). He denies cp, sob, site stable with pressure dressing intact, EKG Afib with V pacing. CXR no PTX, leads in position. He will Hold Eliquis and resume on evening. Activity restrictions reviewed with pt/. He
will receive another dose of antibiotics. He will have incision check in 1 week at [facility]. He is for d/c home after 4pm.
[2025-02-11] MEDS: ANCEF 5 IV (15:49)
== END 2025-02-11 16:07 | disposition home or self-care (01) ==
LOC: CATH 08:01
PROVIDERS: ATTENDING PHYSICIAN Internal Medicine Cardiovascular Disease; FAMILY PHYSICIAN Student in an Organized Health Care Education/Training Program; OTHER PHYSICIAN Internal Medicine Cardiovascular Disease
DX: I49.5 Sick sinus syndrome (principal); Z79.01 Long term (current) use of anticoagulants; Z79.899 Other long term (current) drug therapy; I10 Essential (primary) hypertension; I48.21 Permanent atrial fibrillation
CPT/HCPCS: 33207; 71045; 82962; 93005; C1769; C1786; C1887; C1898

== ENCOUNTER 2025-04-03 12:21 | Outpatient (RCR) | payer OTHER, SELFPAY | END 2025-04-03 23:59 | disposition home or self-care (01) | LOC: RST 12:21 | PROVIDERS: ATTENDING PHYSICIAN Psychiatry & Neurology Neurology; FAMILY PHYSICIAN Family Medicine Sports Medicine | DX: R41.3 Other amnesia (principal); R41.841 Cognitive communication deficit | CPT/HCPCS: 96125; 97129; 97130 ==

== ENCOUNTER 2025-04-10 13:59 | Outpatient (RCR) | payer OTHER, SELFPAY | END 2025-04-10 23:59 | disposition home or self-care (01) | LOC: RST 13:59 | PROVIDERS: ATTENDING PHYSICIAN Psychiatry & Neurology Neurology; FAMILY PHYSICIAN Family Medicine Sports Medicine | DX: R41.3 Other amnesia (principal); R41.841 Cognitive communication deficit | CPT/HCPCS: 97129; 97130 ==

== ENCOUNTER → 2025-10-09 11:41 | Outpatient (REF) | payer OTHER, SELFPAY | LOC: REG 11:41 | PROVIDERS: ATTENDING PHYSICIAN Student in an Organized Health Care Education/Training Program | DX: M79.641 Pain in right hand (principal) | CPT/HCPCS: 73110; 73130 ==